=== PATIENT | male | born 1945 | race Caucasian/White ===

== ENCOUNTER 2017-11-08 18:24 | Emergency (ER) | payer MEDICARE, OTHER ==
[~2017-11-08] VITALS: Ht 175.3 cm; Wt 63.6 kg
[~2017-11-08 18:24] MED LIST: ALDACTONE25 MG PO; ASPIRIN EC81 M1 PO; BACTRIM DS TABL1 TAB PO; DULCOLAX10 MG/SUPP RC; FLOMAX0.4 MG PO; GABAPENTIN100 MG PO; IPRAT-ALBUT 0.5-3 ML UPD; KLOR-CON M2020 MEQ PO; LASIX20 MG OR; MIRALAX17 GM PO; MULTI-DAY VITAM1 TAB PO; NICODERM C1 PATCH .3 TD; SENOKOT-S TABLE1 TAB PO; TEGRETOL200 MG PO; ULTRAM50 MG PO
[2017-11-08 18:32] VITALS: Ht 175.3 cm; Wt 63.6 kg
[2017-11-08 19:09] LABS: BASOPHILS 0.2 % (0-2); EOSINOPHILS 1.5 % (0-7); HEMATOCRIT 34.1 % (42.0-54.0); HEMOGLOBIN 11.6 g/dL (13.5-17.5); IMMATURE GRANULOCYTES 0.2 % (0-5); LYMPHOCYTES 15.3 % (15-50); MCH 31.8 pg (26.0-34.0); MCV 93.4 fL (80.0-100.0); MEAN PLATELET VOLUME 9.9 fL (7.4-10.4); MONOCYTES 11.5 % (2-11); NEUTROPHILS 71.3 % (40-80); PLATELET COUNT 169 10x3/uL (130-400); RBC 3.65 10x6/uL (4.20-6.10); RDW 12.7 % (11.5-14.5); WBC 5.5 10x3/uL (4.8-10.8)
[2017-11-08 19:44] LABS: ALBUMIN 3.3 g/dL (3.4-5.0); ALKALINE PHOSPHATASE 126 U/L (46-116); ALT (SGPT) 18 U/L (10-68); APTT 28.4 SECONDS (22.8-39.4); BILIRUBIN - TOTAL 0.25 mg/dL (0.2-1.3); CALC OSMOLALITY 266 mosm/kg (275-300); CALCIUM 8.3 mg/dL (8.5-10.1); CARBON DIOXIDE 34.6 mmol/L (21.0-32.0); CHLORIDE - SERUM 96 mmol/L (98-107); CREATININE - SERUM 0.8 mg/dL (0.6-1.3); GLUCOSE 102 mg/dL (74-106); INR 0.98 (0.85-1.17); POTASSIUM - SERUM 4.2 mmol/L (3.5-5.1); PROTEIN - SERUM 7.1 g/dL (6.4-8.2); PROTIME 12.6 SECONDS (11.6-15.0); SODIUM 134 mmol/L (136-145); UREA NITROGEN 10 mg/dL (7-18); eGFR NON AFRICAN AMERICAN > 90 mL/min (90-120)
[2017-11-08 19:45] LABS: D-DIMER-QUANTITATIVE 0.34 ug/mLFEU (0.20-0.54)
[2017-11-08 19:55] LABS: CKMB 1.5 U/L (0.0-3.6); CREATINE KINASE 57 UL (21-232); PRO BNP 134 pg/mL (0-125)
[2017-11-08 19:57] LABS: TROPONIN-I < 0.017 ng/mL (0.000-0.060)
[2017-11-08] MEDS ORDERED: PREDNISONE20 MG PO (23:07)
[2017-11-08] MEDS ORDERED: VIBRAMYCIN 100100 MG PO (23:07)
[2017-11-08 23:26] VITALS: BP 123/74
== END 2017-11-08 23:26 | disposition home or self-care (01) ==
LOC: D.ER 18:24
PROVIDERS: Family Medicine
DX: R06.02 Shortness of breath (principal); J44.1 Chronic obstructive pulmonary disease with (acute) exacerbation; Z99.81 Dependence on supplemental oxygen; I50.9 Heart failure, unspecified